=== PATIENT | male | born 1955 ===

== ENCOUNTER 2017-01-23 00:56 | Emergency (ER) | payer MEDICAID ==
[2017-01-23 01:43] VITALS: BP 153/94; PULSE 71; RESP 16; TEMP 98.1; O2SAT 99
--- NOTE | 2017-01-23 03:02 | ED PDOC ---
Lower Extremity Pain/Injury Time Seen by Provider: 01/23/17 02:19 Chief Complaint (Nursing): Lower Extremity Problem/Injury Chief Complaint (Provider): Left hip, low back pain radiating to the lower leg History Per: Patient History/Exam Limitations: no limitations Onset/Duration Of Symptoms: Days Additional Complaint(s): No injury. No medications at home for pain. Past Medical History Reviewed: Historical Data, Nursing Documentation, Vital Signs Vital Signs: Last Vital Signs Temp 98.1 F 01/23/17 01:40 Pulse 71 01/23/17 01:40 Resp 16 01/23/17 01:40 BP 153/94 H 01/23/17 01:40 Pulse Ox 99 01/23/17 01:40 - Medical History PMH: CAD, CHF, HTN, Hypercholesterolemia Denies: Chronic Kidney Disease - Family History Family History: States: No Known Family Hx - Living Arrangements Living Arrangements: With Family - Social History Current smoker - smoking cessation education provided: No Alcohol: None Drugs: Denies - Home Medications Home Medications: Ambulatory Orders Medication Instructions Recorded Furosemide [Lasix] 40 mg PO DAILY #0 tab 07/03/14 Metoprolol Tartrate [Lopressor] 25 mg PO BID #0 tab 07/03/14 Lisinopril [Zestril] 5 mg PO DAILY 11/28/16 Simvastatin 5 mg PO DAILY 11/28/16 Warfarin [Coumadin] 3 mg PO MWF 11/28/16 Warfarin [Coumadin] 4 mg PO TTS 11/28/16 Cyclobenzaprine [Cyclobenzaprine 10 mg PO Q8H PRN #12 tab 01/23/17 HCl] predniSONE [predniSONE Tab] 20 mg PO DAILY #12 tab 01/23/17 - Allergies Allergies/Adverse Reactions: Allergies Allergy/AdvReac Type Severity Reaction Status Date / Time No Known Allergies Allergy Verified 07/24/14 14:11 Review of Systems ROS Statement: Except As Marked, All Systems Reviewed And Found Negative Musculoskeletal: Positive for: Other Physical Exam - Reviewed Nursing Documentation Reviewed: Yes Vital Signs Reviewed: Yes - Physical Exam Appears: Positive for: Well, Non-toxic, No Acute Distress Head Exam: Positive for: ATRAUMATIC, NORMAL INSPECTION, NORMOCEPHALIC Skin: Positive for: Normal Color, Warm, DRY Eye Exam: Positive for: Normal appearance ENT: Positive for: Normal ENT Inspection Neck: Positive for: Normal, Painless ROM Cardiovascular/Chest: Negative for: Chest Non Tender Respiratory: Negative for: Accessory Muscle Use Back: Positive for: Normal Inspection Extremity: Positive for: Normal ROM, Other ((+) pain left leg raise, (+) pain with knee in flexion and hip hyperadduction) Neurologic/Psych: Positive for: Alert, Oriented - ECG O2 Sat by Pulse Oximetry: 99 Medical Decision Making Medical Decision Making: Tylenol PO Flexeril PO IM solumedrol 0350 - Pt reports feeling better. Disposition - Clinical Impression Clinical Impression: Sciatica - Patient ED Disposition Is Patient to be Admitted: No Counseled Patient/Family Regarding: Diagnosis, Need For Followup, Rx Given - Disposition Disposition: Routine/Home Disposition Time: 03:51 Condition: GOOD Prescriptions: Cyclobenzaprine [Cyclobenzaprine HCl] 10 mg PO Q8H PRN #12 tab PRN Reason: Muscle Spasm predniSONE [predniSONE Tab] 20 mg PO DAILY #12 tab Instructions: Sciatica (ED) Print Language: POLISH
== END 2017-01-23 04:02 | disposition home or self-care (01) ==
LOC: H.ER 00:56
DX: M54.30 Sciatica, unspecified side (principal); E78.00 Pure hypercholesterolemia, unspecified; I10 Essential (primary) hypertension; I25.10 Atherosclerotic heart disease of native coronary artery without angina pectoris; Z79.01 Long term (current) use of anticoagulants

== ENCOUNTER 2018-02-25 01:13 | Inpatient (IN) | payer MEDICAID ==
[2018-02-25 01:13] VITALS: BMI 29.2
[2018-02-25] MEDS ORDERED: Nitroglycerin 2% Ointment Foilpak UD TOP STA (01:34)
[2018-02-25] MEDS ORDERED: Albuterol-Ipratrop 3 mg / 0.5 (3 ml) UD INH STA (01:34)
[2018-02-25] MEDS ORDERED: Nitroglycerin 2% Ointment Foilpak UD TOP ONE ×2 (01:41→05:43)
[2018-02-25] MEDS ORDERED: Albuterol-Ipratrop 3 mg / 0.5 (3 ml) UD ONE (01:41)
--- NOTE | 2018-02-25 02:09 | ED PDOC ---
HPI: SOB/CHF/COPD Time Seen by Provider: 02/25/18 01:28 Chief Complaint (Nursing): Shortness Of Breath Chief Complaint (Provider): Shortness Of Breath History Per: Patient History/Exam Limitations: no limitations Onset/Duration Of Symptoms: Hrs (x12) Current Symptoms Are (Timing): Still Present Additional Complaint(s): 62 y/o male with a pmhx of HTN, dyslipidemia, CAD, CHF, and gout here for evaluation of worsening SOB x12 hours. Patient describes PND orthopnea. Patient reports requiring 2-3 pillows to lay down. Denies lower extremity swelling. PMD: Dr. Shipley Past Medical History Reviewed: Historical Data, Nursing Documentation, Vital Signs Vital Signs: Last Vital Signs Temp 99 F 02/25/18 01:28 Pulse 91 H 02/25/18 01:28 Resp 20 02/25/18 01:28 BP 165/105 H 02/25/18 01:45 Pulse Ox 99 02/25/18 02:20 - Medical History PMH: CAD, CHF, HTN, Hypercholesterolemia Denies: Chronic Kidney Disease Other PMH: Gout - Surgical History Surgical History: No Surg Hx - Family History Family History: States: Unknown Family Hx - Social History Current smoker - smoking cessation education provided: No Alcohol: None Drugs: Denies - Allergies Allergies/Adverse Reactions: Allergies Allergy/AdvReac Type Severity Reaction Status Date / Time No Known Allergies Allergy Verified 02/25/18 01:28 Review of Systems ROS Statement: Except As Marked, All Systems Reviewed And Found Negative Respiratory: Positive for: Shortness of Breath Physical Exam - Reviewed Nursing Documentation Reviewed: Yes Vital Signs Reviewed: Yes - Physical Exam Appears: Positive for: Non-toxic, In Acute Distress (moderate respiratory distress) Head Exam: Positive for: ATRAUMATIC, NORMAL INSPECTION, NORMOCEPHALIC Skin: Positive for: Normal Color, Warm, Dry. Negative for: Rash Eye Exam: Positive for: EOMI, Normal appearance, PERRL Neck: Positive for: Normal, Painless ROM, Supple Cardiovascular/Chest: Positive for: Regular Rate, Rhythm, JVD (2+). Negative for: Murmur Respiratory: Positive for: Rales (bibasilar), Respiratory Distress (moderate) Gastrointestinal/Abdominal: Positive for: Normal Exam, Soft. Negative for: Tenderness Back: Positive for: Normal Inspection. Negative for: L CVA Tenderness, R CVA Tenderness, Vertebral Tenderness Extremity: Positive for: Normal ROM. Negative for: Pedal Edema, Deformity, Swelling Neurologic/Psych: Positive for: Alert, Oriented - ECG O2 Sat by Pulse Oximetry: 99 (RA) Pulse Ox Interpretation: Normal - Critical Care Total Time (In Min): 30 Medical Decision Making Medical Decision Makin:33 Initial Impression: 62 y/o male with acute exacerbation of CHF in setting of respiratory distress Plan --EKG --BNP --Troponin I --CBC --PTT/PT --CXR --Duoneb 3ml INH --Lasix 40mg IV --Nitro paste --Heplock insertion --Reevaluation CXR shows cardiomegaly and pulmonary edema. Patient accepted into the care of Dr. Saez. Scribe Attestation: Documented by Deven Ramirez, acting as a scribe for John Holm MD. Provider Scribe Attestation: All medical record entries made by the Scribe were at my direction and personally dictated by me. I have reviewed the chart and agree that the record accurately reflects my personal performance of the history, physical exam, medical decision making, and the department course for this patient. I have also personally directed, reviewed, and agree with the discharge instructions and disposition. Disposition - Clinical Impression Clinical Impression: CHF (congestive heart failure), Respiratory distress - Patient ED Disposition Is Patient to be Admitted: Yes - Disposition Disposition Time: 01:45 Condition: GUARDED Forms: [facility] (Spanish) - Pt Status Changed To: Hospital Disposition Of: Inpatient - Admit Certification Admit to Inpatient:: After my assessment, the patient will require hospitalization for at least two midnights. This is because of the severity of symptoms shown, intensity of services needed, and/or the medical risk in this patient being treated as an outpatient.
[2018-02-25 02:16] LABS: BASO # 0.1 K/uL (0.0-0.2); BASO % 0.9 % (0.0-2.0); EOS # 0.1 K/uL (0.0-0.7); EOS % 1.1 % (0.0-4.0); HEMOGLOBIN 13.3 g/dL (12.0-18.0); LYMPH # 2.2 K/uL (1.0-4.3); LYMPH % 21.7 % (20.0-40.0); MEAN CORPUSCULAR HEMOGLOBIN 29.1 pg (27.0-31.0); MEAN PLATELET VOLUME 8.9 fl (7.2-11.7); MONO # 0.6 K/uL (0.0-0.8); MONO % 6.4 % (0.0-10.0); NEUT # 7.1 K/uL (1.8-7.0); NEUT % 69.9 % (50.0-75.0); RBC 4.56 Mil/uL (4.40-5.90); RED CELL DISTRIBUTION WIDTH 14.7 % (11.5-14.5); WHITE BLOOD COUNT 10.1 K/uL (4.8-10.8)
--- NOTE | 2018-02-25 04:09 | CP.PCM.HP ---
History of Present Illness - History of Present Illness History of Present Illness: PMD: Allison Shipley MD Support Services Rep: Dr Levine Chief Complaint: SOB The patient was seen and examined in the ED with his present HPI: The hx was obtained from Patient and and after review of the medical records. He is a 62 years old male with hx of CHF, CAD, HTN and HLD. He comes with 3 days of worsening of SOB with minimum exertion associated with coughing, Orthopnea and diaphoresis. No chest pain, palpitation, fever nor leg edema. PMH: CAD, CHF Systolic Dysfunction, HTN, HLD; Gout; GI bleed PSH: Denies SH: Occasional Alcohol; Former Smoker; No illegal drug use; Live with ; vending route driver by trade Allergies: NKDA Medication: Reviewed Present on Admission - Present on Admission Any Indicators Present on Admission: No History of DVT/PE: No History of Uncontrolled Diabetes: No Urinary Catheter: No Decubitus Ulcer Present: No Review of Systems - Constitutional Constitutional: absent: Anorexia, Chills, Fever, Headache - EENT Eyes: Requires Corrective Lenses. absent: Floaters, Itchy Eyes, Sees Flashes Ears: absent: Decreased Hearing, Ear Discharge, Ear Pain Nose/Mouth/Throat: absent: Epistaxis, Nasal Congestion, Sinus Pain, Sinus Pressure Additional comments: Upper and lower dentures - Cardiovascular Cardiovascular: Dyspnea, Orthopnea. absent: Chest Pain, Edema, Pedal Edema - Respiratory Respiratory: Cough, Dyspnea on Exertion, Wheezing, Chest Congestion. absent: Dyspnea, Stridor - Gastrointestinal Gastrointestinal: absent: Abdominal Pain, Constipation, Diarrhea, Nausea, Vomiting - Genitourinary Genitourinary: absent: Dysuria, Flank Pain, Hematuria - Musculoskeletal Musculoskeletal: Arthralgias. absent: Back Pain, Myalgias - Integumentary Integumentary: absent: Pruritus, Rash, Skin Ulcer, Sores, Striae, Swelling - Neurological Neurological: absent: Confusion, Dizziness, Focal Weakness, Headaches, Weakness - Psychiatric Psychiatric: absent: Anxiety, Depression, Panic Attacks - Endocrine Endocrine: absent: Palpitations, Polydipsia, Polyphagia, Polyuria - Hematologic/Lymphatic Hematologic: absent: Easy Bleeding, Easy Bruising Past Patient History - Infectious Disease Hx of Infectious Diseases: None - Past Medical History & Family History Past Medical History?: No - Past Social History Smoking Status: Former Smoker Chewing Tobacco Use: No Cigar Use: No Alcohol: Occasional Drugs: Denies Home Situation {Lives}: With Family - CARDIAC Hx Congestive Heart Failure: Yes Hx Hypercholesterolemia: Yes Hx Hypertension: Yes - PULMONARY Hx Respiratory Disorders: No - NEUROLOGICAL Hx Neurological Disorder: No - HEENT Hx HEENT Problems: No - RENAL Hx Chronic Kidney Disease: No - ENDOCRINE/METABOLIC Hx Endocrine Disorders: No - HEMATOLOGICAL/ONCOLOGICAL Hx Blood Disorders: No - INTEGUMENTARY Hx Dermatological Problems: No - MUSCULOSKELETAL/RHEUMATOLOGICAL Hx Musculoskeletal Disorders: No Hx Falls: No - GASTROINTESTINAL Hx Gastrointestinal Disorders: No - GENITOURINARY/GYNECOLOGICAL Hx Genitourinary Disorders: No - PSYCHIATRIC Hx Psychophysiologic Disorder: No Hx Substance Use: No - SURGICAL HISTORY Hx Surgeries: No - ANESTHESIA Hx Anesthesia: Yes Hx Anesthesia Reactions: No Meds Allergies/Adverse Reactions: Allergies Allergy/AdvReac Type Severity Reaction Status Date / Time No Known Allergies Allergy Verified 02/25/18 01:28 Physical Exam - Constitutional Appears: In Acute Distress - Head Exam Head Exam: ATRAUMATIC, NORMAL INSPECTION, NORMOCEPHALIC - Eye Exam Eye Exam: EOMI, Normal appearance Pupil Exam: NORMAL ACCOMODATION, PERRL - ENT Exam ENT Exam: Mucous Membranes Moist, Normal Exam, Normal External Ear Exam - Neck Exam Neck exam: Positive for: Full Rom, Normal Inspection. Negative for: Lymphadenopathy, Tenderness - Respiratory Exam Respiratory Exam: Prolonged Expiratory Phase, Rales, Wheezes. absent: Rhonchi - Cardiovascular Exam Cardiovascular Exam: REGULAR RHYTHM, RRR, +S1, +S2. absent: Gallop - GI/Abdominal Exam GI & Abdominal Exam: Normal Bowel Sounds, Soft. absent: Mass, Organomegaly, Tenderness - Rectal Exam Rectal Exam: Deferred - Extremities Exam Extremities exam: Positive for: full ROM, normal inspection. Negative for: calf tenderness, pedal edema - Back Exam Back exam: NORMAL INSPECTION. absent: CVA tenderness (L), CVA tenderness (R) - Neurological Exam Neurological exam: Alert, CN II-XII Intact, Oriented x3, Reflexes Normal - Psychiatric Exam Psychiatric exam: Normal Affect, Normal Mood - Skin Skin Exam: Dry, Intact, Normal Color, Warm Results - Vital Signs Recent Vital Signs: Last Vital Signs Temp 99 F 02/25/18 01:28 Pulse 76 02/25/18 02:53 Resp 22 02/25/18 04:00 BP 153/98 H 02/25/18 02:53 Pulse Ox 91 L 02/25/18 04:00 - Labs Result Diagrams: 02/25/18 01:38 02/25/18 05:10 - EKG Data EKG comments: NSR 97/min LAE and LVH Prolonged QT - Imaging and Cardiology Chest x-ray Status: Image reviewed by me Additional comment: Bilateral interstitial/Alveolar infiltrate at both hilar and lower lung otto Cardiomegaly Assessment & Plan - Assessment and Plan (Free Text) Assessment: #. Acute on chronic CHF with Systolic Dysfunction #. pulmonary Edema #. HTN #. CAD Plan: 62 years old male with hx of CHF, CAD, HTN and HLD. He comes with 3 days of worsening of SOB with minimum exertion associated with coughing, Orthopnea and diaphoresis. No chest pain, palpitation, fever nor leg edema. #. Acute on chronic CHF with Systolic Dysfunction and Pulmonary Edema Hx stated that patient refused ICD on past admissions( ECHO 01/30/17 showed Systolic Dysfunction with LVEF of 35%) - Consult Dr Warner Cardiology - ECHO - Lasix 40mg IV BID - Lisinopril - Nitro Q6H To Anterior Chest wall - Restart Metoprolol when SOB has improved #. HTN - Lisinopril - Metoprolol - Follow Blood Pressures #. CAD - Lipitor - ASA #. Stress Ulcer prophylaxis with Pepcid #. DVT Prophylaxis with SCD and Lovenox #. Code Status: Full - Date & Time Date: 02/25/18 Time: 04:09
[2018-02-25 04:17] LABS: PROTHROMBIN TIME 10.9 Seconds (9.8-13.1)
[2018-02-25 04:18] LABS: PARTIAL THROMBOPLASTIN TIME 26.6 Seconds (25.6-37.1)
[2018-02-25 05:10] LABS: TROPONIN I 0.016 ng/mL (0.00-0.120)
[2018-02-25 05:22] LABS: ALBUMIN 4.3 g/dL (3.5-5.0); ALT/SGPT 30 U/L (21-72); AST/SGOT 62 U/L (17-59); BLOOD UREA NITROGEN 19 mg/dl (9-20); CALCIUM 9.5 mg/dL (8.4-10.2); GFR AFRICAN-AMERICAN > 60; GFR NON-AFRICAN AMERICAN > 60
[2018-02-25 05:37] LABS: ABG ALLEN TEST YES; ARTERIAL BLOOD GAS HCO3 28.1 mmol/L (21-28); ARTERIAL BLOOD GAS HEMOGLOBIN 12.8 g/dL (11.7-17.4); ARTERIAL BLOOD GAS O2 CAPACITY 17.2 mL/dL (16-24); ARTERIAL BLOOD GAS O2 SAT 98.6 % (95-98); ARTERIAL BLOOD GAS PCO2 40 mm/Hg (35-45); ARTERIAL BLOOD GAS PH 7.46 (7.35-7.45); ARTERIAL BLOOD GAS PO2 83 mm/Hg (80-100); ARTERIAL BLOOD GAS TCO2 29.6 mmol/L (22-28)
[2018-02-25] MEDS: Nitroglycerin 2% Ointment Foilpak UD TOP SCH ×3 (05:41→17:25)
[2018-02-25] MEDS: Albuterol 0.083% Inhal Sol (2.5 mg/3 mL) UD INH SCH ×2 (07:22→13:25)
--- NOTE | 2018-02-25 07:39 | RAD ---
HISTORY: SOB COMPARISON: Portable chest 06/27/2014. FINDINGS: LUNGS: Underlying perihilar airspace disease difficult to exclude. PLEURA: No significant pleural effusion identified, no pneumothorax apparent. CARDIOVASCULAR: Prominent cardiac silhouette and hilar vascular markings persist if not being increased reflecting borderline worsening of CHF. OSSEOUS STRUCTURES: No significant abnormalities. VISUALIZED UPPER ABDOMEN: Normal. OTHER FINDINGS: None. IMPRESSION: Borderline CHF worsening. Underlying perihilar infiltrates difficult to exclude. No pleural effusion or pneumothorax bilaterally.
--- NOTE | 2018-02-25 07:53 | CARD ---
APPROVED REPORT EKG Measurement Heart [id number] <Conclusion> Normal sinus rhythm Possible Left atrial enlargement Left ventricular hypertrophy with repolarization abnormality Prolonged QT Abnormal ECG
[2018-02-25] MEDS ORDERED: Pyridoxine 100 mg Tab PO SCH (09:00)
[2018-02-25] MEDS ORDERED: Enoxaparin 40 mg Syringe SC SCH (09:00)
[2018-02-25 14:03] VITALS: O2SAT 98
[2018-02-25 15:39] VITALS: BP 129/77; PULSE 75; RESP 17; TEMP 98.2
[2018-02-25 17:04] LABS: TROPONIN I 0.017 ng/mL (0.00-0.120)
--- NOTE | 2018-02-25 18:21 | CP.PCM.DIS ---
Provider - Provider Date of Admission: 02/25/18 06:14 Attending physician: Yusef Saez Primary care physician: Dr. Allison Nelson( [facility] ) Consults: cardiology consult Time Spent in preparation of Discharge (in minutes): 15 Hospital Course - Lab Results Lab Results: Most Recent Lab Values WBC 10.1 K/uL (4.8-10.8) D 02/25/18 01:38 RBC 4.56 Mil/uL (4.40-5.90) 02/25/18 01:38 Hgb 13.3 g/dL (12.0-18.0) 02/25/18 01:38 Hct 40.2 % (35.0-51.0) 02/25/18 01:38 MCV 88.0 fl (80.0-94.0) 02/25/18 01:38 MCH 29.1 pg (27.0-31.0) 02/25/18 01:38 MCHC 33.0 g/dL (33.0-37.0) 02/25/18 01:38 RDW 14.7 % (11.5-14.5) H 02/25/18 01:38 Plt Count 261 K/uL (130-400) 02/25/18 01:38 MPV 8.9 fl (7.2-11.7) 02/25/18 01:38 Neut % (Auto) 69.9 % (50.0-75.0) 02/25/18 01:38 Lymph % (Auto) 21.7 % (20.0-40.0) 02/25/18 01:38 Roane % (Auto) 6.4 % (0.0-10.0) 02/25/18 01:38 Eos % (Auto) 1.1 % (0.0-4.0) 02/25/18 01:38 Baso % (Auto) 0.9 % (0.0-2.0) 02/25/18 01:38 Neut # (Auto) 7.1 K/uL (1.8-7.0) H 02/25/18 01:38 Lymph # (Auto) 2.2 K/uL (1.0-4.3) 02/25/18 01:38 Roane # (Auto) 0.6 K/uL (0.0-0.8) 02/25/18 01:38 Eos # (Auto) 0.1 K/uL (0.0-0.7) 02/25/18 01:38 Baso # (Auto) 0.1 K/uL (0.0-0.2) 02/25/18 01:38 PT 10.9 Seconds (9.8-13.1) 02/25/18 03:30 INR 1.0 (0.9-1.2) 02/25/18 03:30 APTT 26.6 Seconds (25.6-37.1) 02/25/18 03:30 pCO2 40 mm/Hg (35-45) 02/25/18 05:30 pO2 83 mm/Hg (80-100) 02/25/18 05:30 HCO3 28.1 mmol/L (21-28) H 02/25/18 05:30 ABG pH 7.46 (7.35-7.45) H 02/25/18 05:30 ABG Total CO2 29.6 mmol/L (22-28) H 02/25/18 05:30 ABG O2 Saturation 98.6 % (95-98) H 02/25/18 05:30 ABG O2 Content 17.0 ML/dL (15-23) 02/25/18 05:30 ABG Base Excess 4.2 mmol/L (-2.0-3.0) H 02/25/18 05:30 ABG Hemoglobin 12.8 g/dL (11.7-17.4) 02/25/18 05:30 ABG Carboxyhemoglobin 2.3 % (0.5-1.5) H 02/25/18 05:30 POC ABG HHb (Measured) 1.3 % (0.0-5.0) 02/25/18 05:30 ABG Methemoglobin 2.2 % (0.0-3.0) 02/25/18 05:30 ABG O2 Capacity 17.2 mL/dL (16-24) 02/25/18 05:30 Devin Test Yes 02/25/18 05:30 A-a O2 Difference 67.0 mm/Hg 02/25/18 05:30 Hgb O2 Saturation 94.1 % (95.0-98.0) L 02/25/18 05:30 FiO2 28.0 % 02/25/18 05:30 Sodium 143 mmol/l (132-148) 02/25/18 05:10 Potassium 3.9 MMOL/L (3.6-5.0) 02/25/18 05:10 Chloride 104 mmol/L (98-107) 02/25/18 05:10 Carbon Dioxide 22 mmol/L (22-30) 02/25/18 05:10 Anion Gap 21 (10-20) H 02/25/18 05:10 BUN 19 mg/dl (9-20) 02/25/18 05:10 Creatinine 1.2 mg/dl (0.8-1.5) 02/25/18 05:10 Est GFR ( Amer) > 60 02/25/18 05:10 Est GFR (Non-Af Amer) > 60 02/25/18 05:10 Random Glucose 121 mg/dL (75-110) H 02/25/18 05:10 Calcium 9.5 mg/dL (8.4-10.2) 02/25/18 05:10 Total Bilirubin 0.9 mg/dl (0.2-1.3) 02/25/18 05:10 AST 62 U/L (17-59) H D 02/25/18 05:10 ALT 30 U/L (21-72) 02/25/18 05:10 Alkaline Phosphatase 103 U/L (38-126) 02/25/18 05:10 Troponin I 0.0170 ng/mL (0.00-0.120) 02/25/18 15:27 NT-Pro-B Natriuret Pep 1280 pg/ml (0-900) H 02/25/18 01:38 Total Protein 8.6 G/DL (6.3-8.2) H 02/25/18 05:10 Albumin 4.3 g/dL (3.5-5.0) 02/25/18 05:10 Globulin 4.3 gm/dL (2.2-3.9) H 02/25/18 05:10 Albumin/Globulin Ratio 1.0 (1.0-2.1) 02/25/18 05:10 - Hospital Course Hospital Course: 62 years old male with hx of CHF, CAD, HTN and HLD. came with 3 days of worsening of SOB with minimum exertion associated with coughing, Orthopnea and diaphoresis. No chest pain, palpitation, fever nor leg edema.BNp found to be elevated 1280 and CXR showed vascular congestion Patient placed under observation in telemetry for acute on chronic CHF exacerbation and Troponins were cycled Q8 hours and started on LasiX IV cardiology was consulted Troponins x3 were negative ruling out cardiac ischemia Echo showed systolic dysfunction Patient feeling well and denies any SOB or CP wants to go home will discharge patient home,. Counselled on low salt diet . Increase Lasix from 20 mg to 40 mg daily Follow up with [facility] in 1 week 1. Acute on chronic CHF with Systolic Dysfunction and Pulmonary Edema improved with lasix will d/c on Lasix 40 mg po daily counselled on low salt diet patient refused ICD on past admissions( ECHO 01/30/17 showed Systolic Dysfunction with LVEF of 35%) Consult with Dr Warner Cardiology appreciated continue Lasix , metoprolol, Lisinopril 2. HTN on Lisinopri, Metoprolol 3. CAD - Lipitor, asa, statin, BB Discharge Exam - Head Exam Head Exam: ATRAUMATIC, NORMAL INSPECTION, NORMOCEPHALIC - Eye Exam Eye Exam: EOMI, Normal appearance, PERRL Pupil Exam: NORMAL ACCOMODATION - ENT Exam ENT Exam: Mucous Membranes Moist, Normal Exam - Neck Exam Neck exam: Full Rom, Normal Inspection - Respiratory Exam Respiratory Exam: Clear to PA & Lateral, NORMAL BREATHING PATTERN. absent: Rhonchi, Wheezes, Respiratory Distress - Cardiovascular Exam Cardiovascular Exam: REGULAR RHYTHM, RRR, +S1, +S2. absent: JVD - GI/Abdominal Exam GI & Abdominal Exam: Normal Bowel Sounds, Soft. absent: Distended, Guarding, Rebound, Tenderness - Rectal Exam Rectal Exam: Deferred - Extremities Exam Extremities exam: normal capillary refill, normal inspection, pedal pulses present - Back Exam Back exam: NORMAL INSPECTION - Neurological Exam Neurological exam: Alert, CN II-XII Intact, Oriented x3, Reflexes Normal - Psychiatric Exam Psychiatric exam: Normal Affect, Normal Mood - Skin Skin Exam: Dry, Intact, Normal Color, Warm Discharge Plan - Follow Up Plan Condition: STABLE Disposition: HOME/ ROUTINE Patient education suggested?: Yes Instructions: Heart Failure, Adult (DC) Referrals: [facility] [Outside] Clinical Quality Measures - CQM - Heart Failure Ejection Fraction: Less Than 40 % Left Ventricular Function to be assessed after discharge: No BONNIE Inhibitor Prescribed: Yes Beta-Willie Prescribed: Metoprolol Succinate Follow Up Date (must be within 7 days from discharge): 03/04/18 Follow Up Time: 09:00
--- NOTE | 2018-02-25 22:43 | CON ---
CARDIOLOGY CONSULTATION DATE: REASON FOR CONSULTATION: Exacerbation of congestive heart failure. 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 For the past few months, the patient has not taken any medication and not seeing any physician and according to him, he continues to drink. The patient was referred to the CHF program at [facility], but apparently he did not to go there. He presents because of shortness of breath. He denies any substernal chest pain. SOCIAL HISTORY: The patient is a nonsmoker, but EtOH abuser. MEDICATIONS: Albuterol inhaler every 6 hours p.r.n., aspirin 81 mg once a day, Lasix 40 mg intravenously twice a day, Lipitor 10 mg once a day, Lovenox 40 mg subcutaneously once a day, Zestril 5 mg once a day, vitamin B 600 mg once a day, and Pepcid 20 mg orally once a day. REVIEW OF SYSTEMS: No nausea or vomiting. No fever or chills. PHYSICAL EXAMINATION: GENERAL: The patient is a middle-aged male who does not appear to be in acute distress. VITAL SIGNS: Blood pressure 129/77, heart rate 75, temperature 98.2, and respirations 17. HEENT: Normocephalic. NECK: Jugular venous distention noted. CHEST: Bibasilar coarse crepitations. HEART: S1 and S2 regular. ABDOMEN: Soft. EXTREMITIES: Trace leg edema. LABORATORY DATA: Today's hemoglobin and hematocrit, white count, and platelet count are within normal limits. PT, INR, and PTT are within normal limits. SMA-7 is within normal limits except for glucose 121 and anion gap of 21. Two sets of troponins are negative. ProBNP is 1280. EKG revealed sinus rhythm, possible left atrial enlargement, LVH with repolarization changes, and prolonged QT interval. Echocardiographic study was performed today and upon brief review of the study which revealed dilated with severely depressed left ventricle systolic function with dilated left atrium. ASSESSMENT: 1. Exacerbation of congestive heart failure. 2. Ethanol abuse. 3. Prolonged QT interval on electrocardiogram. RECOMMENDATIONS: Continue current aspirin 81 mg once a day, Lasix 40 mg intravenously twice a day, Lipitor 10 mg once a day, Lovenox 40 mg subcutaneously twice a day, Zestril 5 mg once a day, start Coreg 3.125 mg twice a day, Aldactone 12.5 mg once a day, full anticoagulation as well as referral for EPS evaluation for possible ICD would be discussed with the primary physician first because with the patient's very poor compliance and continued EtOH abuse. Chai Warner MD
--- NOTE | 2018-02-26 08:12 | CARD ---
APPROVED REPORT EXAM: Two-dimensional and M-mode echocardiogram with Doppler and color Doppler. Other Information Quality : GoodRhythm : NSR INDICATION Congestive Heart Failure 2D DIMENSIONS IVSd0.76 (0.7-1.1cm)LVDd6.70 (3.9-5.9cm) LVOT Diameter1.99 (1.8-2.4cm)PWd1.21 (0.7-1.1cm) IVSs0.94 (0.8-1.2cm)LVDs5.63 (2.5-4.0cm) FS (%) 16.0 %PWs1.63 (0.8-1.2cm) M-Mode DIMENSIONS Left Atrium (MM)5.34 (2.5-4.0cm)IVSd0.75 (0.7-1.1cm) Aortic Root3.47 (2.2-3.7cm)LVDd7.28 (4.0-5.6cm) Aortic Cusp Exc.2.09 (1.5-2.0cm)PWd0.91 (0.7-1.1cm) IVSs1.19 cmFS (%) 21 % LVDs5.72 (2.0-3.8cm)PWs1.28 cm Mitral Valve MV E Ydphfikt16.7cm/sMV DECEL [id number] A Lqjikgwk80.3cm/s MV RNO33teH/A ratio1.7MVA (PHT)4.52cm2 TDI Lateral E' Peak V11.49cm/sMedial E' Peak V4.40cm/sE/Lateral E'6.6 E/Medial E'17.2 Pulmonary Valve PV Peak Gpaijxns88.9cm/s LEFT VENTRICLE The Left Ventricle is moderately dilated. There is normal left ventricular wall thickness. Left ventricle systolic function is severely impaired. The Ejection Fraction is 10-15%. There was severe generalised hypokinesia Transmitral Doppler flow pattern is Grade II-pseudonormal filling dynamics. RIGHT VENTRICLE The right ventricle is normal size. There is normal right ventricular wall thickness. The right ventricular systolic function is normal. ATRIA The left atrium is mildly dilated. The right atrium size is normal. AORTIC VALVE The aortic valve is normal in structure. No aortic regurgitation is present. There is no aortic valvular stenosis. MITRAL VALVE The mitral valve is normal in structure. There is no evidence of mitral valve prolapse. There is no mitral valve stenosis. Mitral regurgitation is mild. TRICUSPID VALVE The tricuspid valve is normal in structure. There is no tricuspid valve regurgitation noted. PULMONIC VALVE The pulmonary valve is normal in structure. There is no pulmonic valvular regurgitation. GREAT VESSELS The aortic root is normal in size. The IVC is normal in size and collapses >50% with inspiration. PERICARDIAL EFFUSION The pericardium appears normal. <Conclusion> The Left Ventricle is moderately dilated. There is normal left ventricular wall thickness. There was severe generalised hypokinesia Left ventricle systolic function is severely impaired. The Ejection Fraction is 10-15%. Transmitral Doppler flow pattern is Grade II-pseudonormal filling dynamics.
== END 2018-02-25 18:55 | disposition home or self-care (01) | DRG 127 ==
LOC: H.ER 01:13 → H.ERHOLD 01:45 → H.TEL 06:09 → OBSVTOIN 06:14
PROVIDERS: ADMIT Internal Medicine; ATTEND Internal Medicine
DX: I11.0 Hypertensive heart disease with heart failure (principal); I42.6 Alcoholic cardiomyopathy; I50.23 Acute on chronic systolic (congestive) heart failure; E78.00 Pure hypercholesterolemia, unspecified; E78.5 Hyperlipidemia, unspecified; Z87.891 Personal history of nicotine dependence; I25.10 Atherosclerotic heart disease of native coronary artery without angina pectoris; I45.81 Long QT syndrome; F10.10 Alcohol abuse, uncomplicated; Z71.3 Dietary counseling and surveillance; M10.9 Gout, unspecified; Z98.61 Coronary angioplasty status

== ENCOUNTER 2018-09-08 08:06 | Inpatient (IN) | payer MEDICAID ==
[2018-09-08 08:07] VITALS: BMI 29.2
[2018-09-08] MEDS ORDERED: Albuterol-Ipratrop 3 mg / 0.5 (3 ml) UD IH STA ×2 (08:37→08:38)
[2018-09-08] MEDS ORDERED: Albuterol-Ipratrop 3 mg / 0.5 (3 ml) UD INH STA (08:37)
[2018-09-08] MEDS ORDERED: Albuterol-Ipratrop 3 mg / 0.5 (3 ml) UD ONE (08:44)
[2018-09-08 08:46] LABS: VENOUS BLOOD GAS BASE EXCESS 1.7 mmol/L (0.0-2.0); VENOUS BLOOD GAS PCO2 38 mmHg (40-60); VENOUS BLOOD GAS PO2 49 mm/Hg (30-55); VENOUS BLOOD PH 7.44 (7.32-7.43)
[2018-09-08 08:53] LABS: PROTHROMBIN TIME 11.2 Seconds (9.8-13.1)
[2018-09-08 08:56] LABS: PARTIAL THROMBOPLASTIN TIME 27.6 Seconds (25.6-37.1)
[2018-09-08 09:01] LABS: BASO # 0.1 K/uL (0.0-0.2); BASO % 0.8 % (0.0-2.0); EOS % 0.6 % (0.0-4.0); HEMOGLOBIN 13.2 g/dL (12.0-18.0); LYMPH # 1.8 K/uL (1.0-4.3); LYMPH % 25.4 % (20.0-40.0); MEAN CELL VOLUME 89.2 fl (80.0-94.0); MEAN CORPUSCULAR HEMOGLOBIN 29.5 pg (27.0-31.0); MEAN CORPUSCULAR HGB CONC 33.1 g/dL (33.0-37.0); MEAN PLATELET VOLUME 9.1 fl (7.2-11.7); MONO # 0.5 K/uL (0.0-0.8); MONO % 7.6 % (0.0-10.0); NEUT # 4.7 K/uL (1.8-7.0); NEUT % 65.6 % (50.0-75.0); NRBC % 0.1 % (0.0-0.0); RBC 4.47 Mil/uL (4.40-5.90); RED CELL DISTRIBUTION WIDTH 14.9 % (11.5-14.5); WHITE BLOOD COUNT 7.1 K/uL (4.8-10.8)
[2018-09-08 09:03] LABS: BLOOD UREA NITROGEN 17 mg/dl (9-20); GFR NON-AFRICAN AMERICAN > 60
[2018-09-08 09:06] LABS: ALB/GLOB RATIO 0.9 (1.0-2.1); ALBUMIN 4.3 g/dL (3.5-5.0); ALT/SGPT 21 U/L (21-72); AST/SGOT 63 U/L (17-59)
[2018-09-08 09:14] LABS: B-TYPE NATRIURETIC PEPTIDE 1260 pg/ml (0-900)
--- NOTE | 2018-09-08 10:44 | ED PDOC ---
HPI: CCC, URI, Sore Throat Time Seen by Provider: 09/08/18 08:13 Chief Complaint (Nursing): Cough, Cold, Congestion Chief Complaint (Provider): Cough, Cold, Congestion History Per: Patient History/Exam Limitations: no limitations Onset/Duration Of Symptoms: Days (x3) Current Symptoms Are (Timing): Still Present Location Of Pain: None Sick Contacts (Context): None Associated Symptoms: Cough, Nasal Congestion Additional Complaint(s): 62 y/o male with a PMHx of CHF and HTN presents to the ED for evaluation of cough, cold and congestion, onset 3 days ago. Patient states cough is productive with white phlegm and is associated with shortness of breath. Patient reports of taking cough medicine with no relief. Otherwise, patient denies nausea, vomiting, diarrhea, chest pain and leg pain. PMD: Allison Peters Past Medical History Reviewed: Historical Data, Nursing Documentation, Vital Signs Vital Signs: Last Vital Signs Temp 97.4 F L 09/08/18 08:36 Pulse 74 09/08/18 10:02 Resp 20 09/08/18 10:02 BP 159/110 H 09/08/18 10:02 Pulse Ox 94 L 09/08/18 09:06 - Medical History PMH: CAD, CHF, HTN, Hypercholesterolemia Denies: Chronic Kidney Disease - Surgical History Surgical History: No Surg Hx - Family History Family History: States: Unknown Family Hx - Home Medications Home Medications: Ambulatory Orders Medication Instructions Recorded RX: Furosemide [Lasix] 40 mg PO DAILY 02/25/18 RX: Lisinopril [Zestril] 5 mg PO DAILY 02/25/18 RX: Metoprolol Tartrate [Lopressor] 25 mg PO BID 02/25/18 RX: Pyridoxine HCl (Vitamin B6) 100 mg PO DAILY 02/25/18 [Vitamin B-6] RX: Simvastatin 5 mg PO DAILY 02/25/18 Aspirin [Adult Low Dose Aspirin EC] 81 mg PO 09/08/18 - Allergies Allergies/Adverse Reactions: Allergies Allergy/AdvReac Type Severity Reaction Status Date / Time No Known Allergies Allergy Verified 09/08/18 08:26 Review of Systems ROS Statement: Except As Marked, All Systems Reviewed And Found Negative Cardiovascular: Negative for: Chest Pain Respiratory: Positive for: Cough (productive white phlegm), Shortness of Breath Gastrointestinal: Negative for: Nausea, Vomiting, Diarrhea Physical Exam - Reviewed Nursing Documentation Reviewed: Yes Vital Signs Reviewed: Yes - Physical Exam Appears: Positive for: Uncomfortable Head Exam: Positive for: ATRAUMATIC, NORMOCEPHALIC Skin: Positive for: Normal Color, Warm, Dry Eye Exam: Positive for: Normal appearance, EOMI, PERRL Neck: Positive for: Normal, Painless ROM Cardiovascular/Chest: Positive for: Regular Rate, Rhythm. Negative for: Murmur Respiratory: Positive for: Decreased Breath Sounds (bilaterally), Wheezing (Bilateral wheezing) Gastrointestinal/Abdominal: Positive for: Normal Exam, Soft. Negative for: Tenderness Back: Positive for: Normal Inspection. Negative for: L CVA Tenderness, R CVA Tenderness Extremity: Positive for: Normal ROM. Negative for: Tenderness, Pedal Edema, Deformity Neurologic/Psych: Positive for: Alert, Oriented. Negative for: Motor/Sensory Deficits - Laboratory Results Result Diagrams: 09/08/18 08:40 09/08/18 08:40 Interpretation Of Abn Labs: elevated pronp - ECG ECG: Positive for: Interpreted By Me, Viewed By Me ECG Rhythm: Positive for: Nonspecific Changes (lvh) O2 Sat by Pulse Oximetry: 94 (RA) Pulse Ox Interpretation: Normal - Radiology X-Ray: Interpreted by Me, Viewed By Me X-Ray Interpretation: Cardiomegaly, Other (vascular congestion) - Progress ED Course And Treament: 915: Spoke with Dr. Hernández. Will admit and let Dr. Ceja know who will admit. Stable. Pain free. Breathing better. - Critical Care Total Time (In Min): 30 Documented Critical Care: Time excludes all time spent performint seperately billable procedures Medical Decision Making Medical Decision Making: Time: 08 Plan: -- VBG -- EKG -- BNP -- CMP -- Magnesium -- Phosphorus -- Troponin I -- CBC with Differentials -- PTT -- Prothrombin Time -- CXR Portable -- Duoneb 3mg/0.5mg (3 ml) UD 3 ml INH -- Duoneb 3mg/0.5mg (3 ml) UD 3 ml INH -- Duoneb 3mg/0.5mg (3 ml) UD 3 ml INH -- SOLU-Medrol -- Blood Culture -- Throat Culture -- Fuel Pilot Engineer -- IV Insertion -- Vital Signs Q15 -- Peak Flow Pre/Post Tx -- Peak Flow Pre/Post Tx -- Influenza A B -- Rapid Strep Group A Antigen Time: 914 Plan: -- Aspirin 325 mg PO -- Lasix 40 mg IV -- Nitrostat 0.4 mg SL -- Patient to be admitted Scribe Attestation: Documented by Jose Prieto, acting as a scribe for Marcos Lagunas MD. Provider Scribe Attestation: All medical record entries made by the Scribe were at my direction and personally dictated by me. I have reviewed the chart and agree that the record accurately reflects my personal performance of the history, physical exam, medical decision making, and the department course for this patient. I have also personally directed, reviewed, and agree with the discharge instructions and disposition. Disposition - Clinical Impression Clinical Impression: CHF (congestive heart failure) - Patient ED Disposition Is Patient to be Admitted: Yes Counseled Patient/Family Regarding: Studies Performed, Diagnosis - Disposition Disposition Time: 11:46 Condition: FAIR - Pt Status Changed To: Hospital Disposition Of: Observation - POA Present On Arrival: None
--- NOTE | 2018-09-08 11:04 | CP.PCM.HP ---
<Wendy Banuelos - Last Filed: 09/08/18 11:34> History of Present Illness - History of Present Illness History of Present Illness: 62 y/o Hungarian speaking male w/ pmhx of CHF, HTN, CAD who c/o SOB that began 4 days ago, and worsened this morning. He reports that he is usually compliant w/ home medications, but he missed one day last week while being out of town. He is not compliant with a low sodium diet. He also reports having one day of non- bloody productive cough w/ yellow sputum. He denies chest pain, fever, sore throat, fatigue. He states that he last saw his yarn hauler 5-6 months ago, and is scheduled for a follow-up visit in October. PMHx: Dilated cardiomyopathy w/ CHF (EF: 10-15%), CAD, HTN, HLD, gout, and sciatica Surgical hx: denies Family hx: father had "a big heart" Socialhx: etoh use 5-6 beers on weekends, former smoker, denies recreational drug use. No recent travel hx outside of [place]. Works as a reach truck operator. Allergies: NKDA HomeRx: Asprin 81mg PO QD, Furosemide 40mg PO QD, Simvastatin 5mg PO QD, Metoprolol tartrate 25mg PO BID, Lisinopril 5mg PO QD, B6 vitamin supplements Next of Kin: Spouse, Rita Turner, Code Status: full code Sweeper Cleaner Industrial: Dr. Dorsey Present on Admission - Present on Admission Any Indicators Present on Admission: No History of DVT/PE: No History of Uncontrolled Diabetes: No Urinary Catheter: No Decubitus Ulcer Present: No Review of Systems - Constitutional Constitutional: absent: Excessive Sweating, Fever - EENT Eyes: absent: Blurred Vision Ears: absent: Dizziness Nose/Mouth/Throat: absent: Nasal Congestion, Nasal Discharge, Sore Throat - Cardiovascular Cardiovascular: Dyspnea. absent: Chest Pain, Diaphoresis, Leg Edema, Lightheadedness, Palpitations, Pedal Edema - Respiratory Respiratory: Cough, Wheezing. absent: Hemoptysis - Gastrointestinal Gastrointestinal: absent: Constipation, Diarrhea, Vomiting - Musculoskeletal Musculoskeletal: absent: Muscle Cramps, Numbness, Tingling - Endocrine Endocrine: absent: Fatigue Past Patient History - Infectious Disease Hx of Infectious Diseases: None - Past Medical History & Family History Past Medical History?: Yes - Past Social History Smoking Status: Never Smoked Home Situation {Lives}: With Family - CARDIAC Hx Congestive Heart Failure: Yes Hx Hypercholesterolemia: Yes Hx Hypertension: Yes - PULMONARY Hx Respiratory Disorders: No - NEUROLOGICAL Hx Neurological Disorder: No - HEENT Hx HEENT Problems: No - RENAL Hx Chronic Kidney Disease: No - ENDOCRINE/METABOLIC Hx Endocrine Disorders: No - HEMATOLOGICAL/ONCOLOGICAL Hx Blood Disorders: No - INTEGUMENTARY Hx Dermatological Problems: No - MUSCULOSKELETAL/RHEUMATOLOGICAL Hx Musculoskeletal Disorders: Yes - GASTROINTESTINAL Hx Gastrointestinal Disorders: No - GENITOURINARY/GYNECOLOGICAL Hx Genitourinary Disorders: No - PSYCHIATRIC Hx Psychophysiologic Disorder: No - SURGICAL HISTORY Hx Surgeries: No - ANESTHESIA Hx Anesthesia: Yes Hx Anesthesia Reactions: No Hx Malignant Hyperthermia: No Meds Allergies/Adverse Reactions: Allergies Allergy/AdvReac Type Severity Reaction Status Date / Time No Known Allergies Allergy Verified 09/08/18 08:26 Physical Exam - Constitutional Appears: No Acute Distress - Eye Exam Eye Exam: Normal appearance - ENT Exam ENT Exam: Mucous Membranes Moist - Neck Exam Neck exam: Positive for: Normal Inspection - Respiratory Exam Respiratory Exam: NORMAL BREATHING PATTERN (bilateral diffuse crackles) - Cardiovascular Exam Cardiovascular Exam: REGULAR RHYTHM, +S1, +S2 - GI/Abdominal Exam GI & Abdominal Exam: Distended, Normal Bowel Sounds, Soft. absent: Guarding, Rigid - Extremities Exam Extremities exam: Positive for: full ROM, normal inspection. Negative for: calf tenderness, pedal edema, tenderness - Neurological Exam Neurological exam: Alert, Oriented x3 - Psychiatric Exam Psychiatric exam: Normal Affect - Skin Skin Exam: Dry, Intact, Warm Results - Vital Signs Recent Vital Signs: Last Vital Signs Temp 97.9 F 09/08/18 10:50 Pulse 80 09/08/18 10:50 Resp 18 09/08/18 10:50 BP 153/84 H 09/08/18 10:50 Pulse Ox 94 L 09/08/18 10:50 - Labs Result Diagrams: 09/08/18 08:40 09/08/18 08:40 Labs: Laboratory Results - last 24 hr 09/08/18 09/08/18 09/08/18 08:39 08:39 08:40 WBC RBC Hgb Hct MCV MCH MCHC RDW Plt Count MPV Neut % (Auto) Lymph % (Auto) [place] % (Auto) Eos % (Auto) Baso % (Auto) Neut # (Auto) Lymph # (Auto) [place] # (Auto) Eos # (Auto) Baso # (Auto) PT INR APTT pO2 VBG pH VBG pCO2 VBG HCO3 VBG Total CO2 VBG O2 Sat (Calc) VBG Base Excess VBG Potassium Glucose Lactate FiO2 Sodium 141 Potassium 4.4 Chloride 107 Carbon Dioxide 22 Anion Gap 16 BUN 17 Creatinine 0.9 Est GFR ( Amer) > 60 Est GFR (Non-Af Amer) > 60 Random Glucose 103 Calcium 9.0 Phosphorus 3.5 Magnesium 1.6 Total Bilirubin 1.0 AST 63 H ALT 21 D Alkaline Phosphatase 115 Troponin I 0.0360 NT-Pro-B Natriuret Pep 1260 H Total Protein 8.9 H Albumin 4.3 Globulin 4.6 H Albumin/Globulin Ratio 0.9 L Venous Blood Potassium Influenza Typ A,B (EIA) Negative for flu a/b Grp A Beta Strep Ag Negative 09/08/18 09/08/18 09/08/18 08:40 08:40 08:41 WBC 7.1 RBC 4.47 Hgb 13.2 Hct 39.9 MCV 89.2 MCH 29.5 MCHC 33.1 RDW 14.9 H Plt Count 242 MPV 9.1 Neut % (Auto) 65.6 Lymph % (Auto) 25.4 [place] % (Auto) 7.6 Eos % (Auto) 0.6 Baso % (Auto) 0.8 Neut # (Auto) 4.7 Lymph # (Auto) 1.8 [place] # (Auto) 0.5 Eos # (Auto) 0.0 Baso # (Auto) 0.1 PT 11.2 INR 1.0 APTT 27.6 pO2 49 VBG pH 7.44 H VBG pCO2 38 L VBG HCO3 25.9 VBG Total CO2 27.0 VBG O2 Sat (Calc) 87.2 H VBG Base Excess 1.7 VBG Potassium 4.4 Glucose 104 Lactate 1.4 FiO2 21.0 Sodium 144.0 Potassium Chloride 110.0 H Carbon Dioxide Anion Gap BUN Creatinine Est GFR ( Amer) Est GFR (Non-Af Amer) Random Glucose Calcium Phosphorus Magnesium Total Bilirubin AST ALT Alkaline Phosphatase Troponin I NT-Pro-B Natriuret Pep Total Protein Albumin Globulin Albumin/Globulin Ratio Venous Blood Potassium 4.4 Influenza Typ A,B (EIA) Grp A Beta Strep Ag Assessment & Plan - Assessment and Plan (Free Text) Assessment: 62 y/o male w/ pmhx of CHF, HTN, CAD admitted w/ worsening SOB. Plan: Shortness of breath Possibly secondary to CHF exacerbation vs. respiratory etiology Lasix 40mg IV BID 2L O2 NC PRN Continue home meds: Asprin 81mg PO QD, Simvastatin 5mg PO QD, Metoprolol tartrate 25mg PO BID, Lisinopril 5mg PO QD Follow BMP Check weights daily and strict I/O monitoring Repeat troponins Repeat EKG tomorrow Fluid restriction and salt restriction r/o PE; chest CT w/ CO ordered Cardiology consulted; appreciate recs Cough Probably secondary to CHF CXR 09/08/2018: diffuse bilateral infiltrate, will check chest CT w/o CO Patient is afebrile, wbc wnl Influenza Ag negative and Strep negative Hypertension Chronic Cont home meds Will cont to monitor Diet Heart healthy, low sodium DVT Prophlaxis Lovenox 40mg SC QD - Date & Time Date: 09/08/18 Time: 10:51 <Mc Ceja D - Last Filed: 09/08/18 14:21> Results - Vital Signs Recent Vital Signs: Last Vital Signs Temp 97.6 F 09/08/18 11:53 Pulse 81 09/08/18 11:53 Resp 18 09/08/18 11:53 BP 140/81 09/08/18 11:53 Pulse Ox 96 09/08/18 11:53 - Labs Result Diagrams: 09/08/18 08:40 09/08/18 08:40 Labs: Laboratory Results - last 24 hr 09/08/18 09/08/18 09/08/18 08:39 08:39 08:40 WBC RBC Hgb Hct MCV MCH MCHC RDW Plt Count MPV Neut % (Auto) Lymph % (Auto) [place] % (Auto) Eos % (Auto) Baso % (Auto) Neut # (Auto) Lymph # (Auto) [place] # (Auto) Eos # (Auto) Baso # (Auto) PT INR APTT pO2 VBG pH VBG pCO2 VBG HCO3 VBG Total CO2 VBG O2 Sat (Calc) VBG Base Excess VBG Potassium Glucose Lactate FiO2 Sodium 141 Potassium 4.4 Chloride 107 Carbon Dioxide 22 Anion Gap 16 BUN 17 Creatinine 0.9 Est GFR ( Amer) > 60 Est GFR (Non-Af Amer) > 60 Random Glucose 103 Calcium 9.0 Phosphorus 3.5 Magnesium 1.6 Total Bilirubin 1.0 AST 63 H ALT 21 D Alkaline Phosphatase 115 Troponin I 0.0360 NT-Pro-B Natriuret Pep 1260 H Total Protein 8.9 H Albumin 4.3 Globulin 4.6 H Albumin/Globulin Ratio 0.9 L Venous Blood Potassium Influenza Typ A,B (EIA) Negative for flu a/b Grp A Beta Strep Ag Negative 09/08/18 09/08/18 09/08/18 08:40 08:40 08:41 WBC 7.1 RBC 4.47 Hgb 13.2 Hct 39.9 MCV 89.2 MCH 29.5 MCHC 33.1 RDW 14.9 H Plt Count 242 MPV 9.1 Neut % (Auto) 65.6 Lymph % (Auto) 25.4 [place] % (Auto) 7.6 Eos % (Auto) 0.6 Baso % (Auto) 0.8 Neut # (Auto) 4.7 Lymph # (Auto) 1.8 [place] # (Auto) 0.5 Eos # (Auto) 0.0 Baso # (Auto) 0.1 PT 11.2 INR 1.0 APTT 27.6 pO2 49 VBG pH 7.44 H VBG pCO2 38 L VBG HCO3 25.9 VBG Total CO2 27.0 VBG O2 Sat (Calc) 87.2 H VBG Base Excess 1.7 VBG Potassium 4.4 Glucose 104 Lactate 1.4 FiO2 21.0 Sodium 144.0 Potassium Chloride 110.0 H Carbon Dioxide Anion Gap BUN Creatinine Est GFR ( Amer) Est GFR (Non-Af Amer) Random Glucose Calcium Phosphorus Magnesium Total Bilirubin AST ALT Alkaline Phosphatase Troponin I NT-Pro-B Natriuret Pep Total Protein Albumin Globulin Albumin/Globulin Ratio Venous Blood Potassium 4.4 Influenza Typ A,B (EIA) Grp A Beta Strep Ag Attending/Attestation - Attestation I have personally seen and examined this patient.: Yes I have fully participated in the care of the patient.: Yes I have reviewed all pertinent clinical information: Yes Notes (Text): 09/08/18 14:21 Patient seen and examined with resident. Case discussed and agreed with assessment and plan of management.
--- NOTE | 2018-09-08 11:14 | RAD ---
Date of service: 09/08/2018 HISTORY: Sepsis Patient COMPARISON: 02/25/2018 FINDINGS: LUNGS: Diffuse bilateral infiltrates. PLEURA: No significant pleural effusion identified, no pneumothorax apparent. CARDIOVASCULAR: No aortic atherosclerotic calcification present. Normal cardiac size. No pulmonary vascular congestion. OSSEOUS STRUCTURES: No significant abnormalities. VISUALIZED UPPER ABDOMEN: Normal. OTHER FINDINGS: None. IMPRESSION: Diffuse bilateral infiltrates.
[2018-09-08] MEDS: Enoxaparin 40 mg Syringe SC SCH (12:44)
[2018-09-08] MEDS: Pantoprazole 40 mg EC Tab PO SCH (12:44)
[2018-09-08] MEDS ORDERED: Iodixanol 320 MG/ML 100 ML BOTTLE IV ONE (13:30)
--- NOTE | 2018-09-08 14:15 | CT ---
Date of service: 09/08/2018 PROCEDURE: CT Chest with contrast (Pulmonary Angiogram) HISTORY: acute dyspnea COMPARISON: None available. TECHNIQUE: Axial computed tomography images were obtained of the chest in the pulmonary arterial phase of enhancement. Coronal and sagittal reformatted images were created and reviewed. Intravenous contrast dose: Radiation dose: Total exam DLP = 391.08 mGy-cm. This CT exam was performed using one or more of the following dose reduction techniques: Automated exposure control, adjustment of the mA and/or kV according to patient size, and/or use of iterative reconstruction technique. FINDINGS: PULMONARY ARTERIES: Unremarkable. No pulmonary embolism. AORTA: No acute findings. No thoracic aortic aneurysm. No aortic atherosclerotic calcification or mural plaque present. LUNGS: Patchy bibasilar infiltrates. PLEURAL SPACES: Small bilateral pleural effusions. HEART: Unremarkable. No cardiomegaly. No significant pericardial effusion. LYMPH NODES: No lymphadenopathy. BONES, CHEST WALL: Unremarkable. No fracture or destructive lesion OTHER FINDINGS: Unremarkable. IMPRESSION: Patchy bibasilar infiltrates.Small bilateral pleural effusions. No pulmonary embolism.
[2018-09-09 05:35] LABS: BASO % 0.2 % (0.0-2.0); HEMOGLOBIN 13.1 g/dL (12.0-18.0); LYMPH # 0.9 K/uL (1.0-4.3); LYMPH % 11.5 % (20.0-40.0); MEAN CORPUSCULAR HEMOGLOBIN 29.5 pg (27.0-31.0); MEAN CORPUSCULAR HGB CONC 33.2 g/dL (33.0-37.0); MEAN PLATELET VOLUME 9.5 fl (7.2-11.7); MONO # 0.3 K/uL (0.0-0.8); MONO % 4.3 % (0.0-10.0); NEUT # 6.4 K/uL (1.8-7.0); NRBC % 0.1 % (0.0-0.0); RBC 4.44 Mil/uL (4.40-5.90); RED CELL DISTRIBUTION WIDTH 14.9 % (11.5-14.5); WHITE BLOOD COUNT 7.6 K/uL (4.8-10.8)
[2018-09-09 05:36] LABS: BLOOD UREA NITROGEN 18 mg/dl (9-20); CALCIUM 9.2 mg/dL (8.4-10.2); GFR NON-AFRICAN AMERICAN > 60; HDL CHOLESTEROL 64 MG/DL (30-70)
[2018-09-09 05:48] LABS: LDL CHOLESTEROL 132 mg/dL (0-129)
[2018-09-09 07:49] VITALS: BP 151/83; PULSE 87; RESP 20; TEMP 97.8; O2SAT 99
[2018-09-09] MEDS ORDERED: Pyridoxine 100 mg Tab PO SCH (09:00)
[2018-09-09] MEDS: Enoxaparin 40 mg Syringe SC SCH (09:19)
[2018-09-09] MEDS: Pantoprazole 40 mg EC Tab PO SCH (09:20)
--- NOTE | 2018-09-09 09:26 | CP.PCM.CON ---
History of Present Illness - History of Present Illness History of Present Illness: This 62-year-old -Czech male came into the emergency room complaining of shortness of breath. He admits the fact that he had missed couple of bruises of furosemide which she takes every day. He johnson adfastly refutes ever having experienced any chest pain. He gives history of having had an enlarged heart for which she has been seeing a oncology rn at [facility] on a regular basis. He has had a long history of hypertension but denies diabetes or having suffered prior myocardial infarction. He has been taking an BONNIE inhibitor as well as a beta jeromy and a diabetic on a regular basis. Physical examination shows a middle aged -Czech male who is quite alert awake coherent afebrile and reports significant relief after having received furosemide yesterday. Telemetry shows sinus rhythm at physiological rates. His blood pressure was 150/80 mmHg. His jugular venous pressure was not elevated and there was no edema over his lower extremity. His pedal pulses were well felt. There were no carotid bruits. The apex was in the fifth space the first and second heart sounds were normal there was a brief apical systolic murmur of mitral regurgitation no S3 gallop was audible. Abdomen was soft liver and spleen are not palpable. There were no rales. His electrocardiogram showed sinus rhythm with a pattern of left ventricular hypertrophy which was seen on his cardiogram dating back to 2013. Echocardiograms also dating back to 2013 show severely depressed left ventricular systolic function. For this the patient is being treated by oncology rn in the clinic at [facility]. Troponin levels 3 were negative for any evidence of myocyte injury. Impression congestive cardiomyopathy, hypertension No evidence off acute coronary syndrome. The patient may be allowed to [place] his medications which consisted off an BONNIE inhibitor beta jeromy and a diabetic. he has an appointment to see his oncology rn within next week. Past Patient History - Infectious Disease Hx of Infectious Diseases: None - Past Medical History & Family History Past Medical History?: Yes - Past Social History Smoking Status: Never Smoked Home Situation {Lives}: With Family - CARDIAC Hx Congestive Heart Failure: Yes Hx Hypercholesterolemia: Yes Hx Hypertension: Yes - PULMONARY Hx Respiratory Disorders: No - NEUROLOGICAL Hx Neurological Disorder: No - HEENT Hx HEENT Problems: No - RENAL Hx Chronic Kidney Disease: No - ENDOCRINE/METABOLIC Hx Endocrine Disorders: No - HEMATOLOGICAL/ONCOLOGICAL Hx Blood Disorders: No - INTEGUMENTARY Hx Dermatological Problems: No - MUSCULOSKELETAL/RHEUMATOLOGICAL Hx Musculoskeletal Disorders: Yes - GASTROINTESTINAL Hx Gastrointestinal Disorders: No - GENITOURINARY/GYNECOLOGICAL Hx Genitourinary Disorders: No - PSYCHIATRIC Hx Psychophysiologic Disorder: No - SURGICAL HISTORY Hx Surgeries: No - ANESTHESIA Hx Anesthesia: Yes Hx Anesthesia Reactions: No Hx Malignant Hyperthermia: No Meds Allergies/Adverse Reactions: Allergies Allergy/AdvReac Type Severity Reaction Status Date / Time No Known Allergies Allergy Verified 09/08/18 08:26 - Medications Medications: Current Medications Aspirin (Ecotrin) 81 mg PO DAILY [facility] Docusate Sodium (Colace) 100 mg PO BID PRN PRN Reason: Constipation Enoxaparin Sodium (Lovenox) 40 mg SC DAILY [facility]; Protocol Last Admin: 09/08/18 12:44 Dose: Not Given Furosemide (Lasix) 40 mg PO DAILY [facility] Lisinopril (Zestril) 5 mg PO DAILY [facility] Metoprolol Tartrate (Lopressor) 25 mg PO BID [facility] Last Admin: 09/08/18 16:54 Dose: 25 mg Pantoprazole Sodium (Protonix Ec Tab) 40 mg PO DAILY [facility] Last Admin: 09/08/18 12:44 Dose: Not Given Pyridoxine HCl (Vitamin B6) 100 mg PO DAILY [facility] Results - Vital Signs Recent Vital Signs: Last Vital Signs Temp 97.8 F 09/09/18 07:49 Pulse 87 09/09/18 07:49 Resp 20 09/09/18 07:49 BP 151/83 H 09/09/18 07:49 Pulse Ox 99 09/09/18 07:49 - Labs Result Diagrams: 09/09/18 04:25 09/09/18 04:25 Labs: Laboratory Results - last 24 hr 09/08/18 09/08/18 09/09/18 08:40 16:12 01:37 WBC RBC Hgb Hct MCV MCH MCHC RDW Plt Count MPV Neut % (Auto) Lymph % (Auto) [place] % (Auto) Eos % (Auto) Baso % (Auto) Neut # (Auto) Lymph # (Auto) [place] # (Auto) Eos # (Auto) Baso # (Auto) Sodium Potassium Chloride Carbon Dioxide Anion Gap BUN Creatinine Est GFR ( Amer) Est GFR (Non-Af Amer) Random Glucose Calcium Troponin I 0.0360 0.0170 0.0120 Triglycerides Cholesterol LDL Cholesterol Direct HDL Cholesterol 09/09/18 09/09/18 04:25 04:25 WBC 7.6 RBC 4.44 Hgb 13.1 Hct 39.5 MCV 89.0 MCH 29.5 MCHC 33.2 RDW 14.9 H Plt Count 242 MPV 9.5 Neut % (Auto) 84.0 H Lymph % (Auto) 11.5 L [place] % (Auto) 4.3 Eos % (Auto) 0.0 Baso % (Auto) 0.2 Neut # (Auto) 6.4 Lymph # (Auto) 0.9 L [place] # (Auto) 0.3 Eos # (Auto) 0.0 Baso # (Auto) 0.0 Sodium 140 Potassium 3.9 Chloride 103 Carbon Dioxide 26 Anion Gap 15 BUN 18 Creatinine 1.0 Est GFR ( Amer) > 60 Est GFR (Non-Af Amer) > 60 Random Glucose 153 H Calcium 9.2 Troponin I Triglycerides 66 Cholesterol 199 LDL Cholesterol Direct 132 H HDL Cholesterol 64
--- NOTE | 2018-09-09 10:54 | CARD ---
APPROVED REPORT Date of service: 09/09/2018 EKG Measurement Heart [id number] GA [id number] <Conclusion> Sinus rhythm with occasional premature ventricular complexes Left ventricular hypertrophy T wave abnormality, consider inferolateral ischemia Prolonged QT Abnormal ECG
--- NOTE | 2018-09-09 11:31 | CARD ---
APPROVED REPORT Date of service: 09/08/2018 EKG Measurement Heart [id number] AL [id number] <Conclusion> Sinus rhythm with 1st degree AV block Possible Left atrial enlargement Left ventricular hypertrophy with repolarization abnormality Abnormal ECG
--- NOTE | 2018-09-09 11:51 | CP.PCM.DIS ---
<Wendy Banuelos - Last Filed: 09/09/18 11:54> Provider - Provider Date of Admission: 09/08/18 09:15 Attending physician: Mc Ceja MD Consults: 09/08/18 11:32 Cardiology Consult Routine Comment: Consulting Provider: Osorio Aponte V Consulting Physician: Osorio Aponte V Reason for Consult: acute exacerbation of CHF Time Spent in preparation of Discharge (in minutes): 35 Diagnosis - Discharge Diagnosis (1) Shortness of breath Status: Acute Priority: Low (2) Acute exacerbation of congestive heart failure Status: Acute Priority: Low Hospital Course - Lab Results Lab Results: Micro Results 09/08/18 09:10 Blood Blood Culture - Preliminary NO GROWTH AFTER 24 HOURS 09/08/18 09:10 Blood Blood Culture - Preliminary NO GROWTH AFTER 24 HOURS Most Recent Lab Values WBC 7.6 K/uL (4.8-10.8) 09/09/18 04:25 RBC 4.44 Mil/uL (4.40-5.90) 09/09/18 04:25 Hgb 13.1 g/dL (12.0-18.0) 09/09/18 04:25 Hct 39.5 % (35.0-51.0) 09/09/18 04:25 MCV 89.0 fl (80.0-94.0) 09/09/18 04:25 MCH 29.5 pg (27.0-31.0) 09/09/18 04:25 MCHC 33.2 g/dL (33.0-37.0) 09/09/18 04:25 RDW 14.9 % (11.5-14.5) H 09/09/18 04:25 Plt Count 242 K/uL (130-400) 09/09/18 04:25 MPV 9.5 fl (7.2-11.7) 09/09/18 04:25 Neut % (Auto) 84.0 % (50.0-75.0) H 09/09/18 04:25 Lymph % (Auto) 11.5 % (20.0-40.0) L 09/09/18 04:25 [place] % (Auto) 4.3 % (0.0-10.0) 09/09/18 04:25 Eos % (Auto) 0.0 % (0.0-4.0) 09/09/18 04:25 Baso % (Auto) 0.2 % (0.0-2.0) 09/09/18 04:25 Neut # (Auto) 6.4 K/uL (1.8-7.0) 09/09/18 04:25 Lymph # (Auto) 0.9 K/uL (1.0-4.3) L 09/09/18 04:25 [place] # (Auto) 0.3 K/uL (0.0-0.8) 09/09/18 04:25 Eos # (Auto) 0.0 K/uL (0.0-0.7) 09/09/18 04:25 Baso # (Auto) 0.0 K/uL (0.0-0.2) 09/09/18 04:25 PT 11.2 Seconds (9.8-13.1) 09/08/18 08:40 INR 1.0 09/08/18 08:40 APTT 27.6 Seconds (25.6-37.1) 09/08/18 08:40 pO2 49 mm/Hg (30-55) 09/08/18 08:41 VBG pH 7.44 (7.32-7.43) H 09/08/18 08:41 VBG pCO2 38 mmHg (40-60) L 09/08/18 08:41 VBG HCO3 25.9 mmol/L 09/08/18 08:41 VBG Total CO2 27.0 mmol/L (22-28) 09/08/18 08:41 VBG O2 Sat (Calc) 87.2 % (40-65) H 09/08/18 08:41 VBG Base Excess 1.7 mmol/L (0.0-2.0) 09/08/18 08:41 VBG Potassium 4.4 mmol/L (3.6-5.2) 09/08/18 08:41 Sodium 144.0 mmol/L (132-148) 09/08/18 08:41 Chloride 110.0 mmol/L (98-107) H 09/08/18 08:41 Glucose 104 mg/dL (75-110) 09/08/18 08:41 Lactate 1.4 mmol/L (0.7-2.1) 09/08/18 08:41 FiO2 21.0 % 09/08/18 08:41 Sodium 140 mmol/l (132-148) 09/09/18 04:25 Potassium 3.9 MMOL/L (3.6-5.0) 09/09/18 04:25 Chloride 103 mmol/L (98-107) 09/09/18 04:25 Carbon Dioxide 26 mmol/L (22-30) 09/09/18 04:25 Anion Gap 15 (10-20) 09/09/18 04:25 BUN 18 mg/dl (9-20) 09/09/18 04:25 Creatinine 1.0 mg/dl (0.8-1.5) 09/09/18 04:25 Est GFR ( Amer) > 60 09/09/18 04:25 Est GFR (Non-Af Amer) > 60 09/09/18 04:25 Random Glucose 153 mg/dL (75-110) H 09/09/18 04:25 Calcium 9.2 mg/dL (8.4-10.2) 09/09/18 04:25 Phosphorus 3.5 mg/dl (2.5-4.5) 09/08/18 08:40 Magnesium 1.6 MG/DL (1.6-2.3) 09/08/18 08:40 Total Bilirubin 1.0 mg/dl (0.2-1.3) 09/08/18 08:40 AST 63 U/L (17-59) H 09/08/18 08:40 ALT 21 U/L (21-72) D 09/08/18 08:40 Alkaline Phosphatase 115 U/L (38-126) 09/08/18 08:40 Troponin I 0.0120 ng/mL (0.00-0.120) 09/09/18 01:37 NT-Pro-B Natriuret Pep 1260 pg/ml (0-900) H 09/08/18 08:40 Total Protein 8.9 G/DL (6.3-8.2) H 09/08/18 08:40 Albumin 4.3 g/dL (3.5-5.0) 09/08/18 08:40 Globulin 4.6 gm/dL (2.2-3.9) H 09/08/18 08:40 Albumin/Globulin Ratio 0.9 (1.0-2.1) L 09/08/18 08:40 Triglycerides 66 mg/DL (0-149) 09/09/18 04:25 Cholesterol 199 mg/dL (0-199) 09/09/18 04:25 LDL Cholesterol Direct 132 mg/dL (0-129) H 09/09/18 04:25 HDL Cholesterol 64 MG/DL (30-70) 09/09/18 04:25 Venous Blood Potassium 4.4 mmol/L (3.6-5.2) 09/08/18 08:41 Influenza Typ A,B (EIA) Negative for flu a/b (NEGATIVE) 09/08/18 08:39 Grp A Beta Strep Ag Negative (NEGATIVE) 09/08/18 08:39 - Hospital Course Hospital Course: 62 y/o male w/ pmhx of CHF, HTN, CAD who was admitted for congestive heart failure exacerbation after missing a few days of HTN medications. He was treated w/ Lasix 40 mg IV once and, Lasix 40mg PO once. Patient was seen by dedenter, Dr. Aponte, who cleared patient for discharge with instructions to continue taking his home medications and follow up w/ his dedenter within a week. Patient's symptoms resolved and was stable for discharge to home w/ no new medications or changes to current medications. - Date & Time of H&P Date of H&P: 09/09/18 Time of H&P: 10:50 Discharge Exam - Head Exam Head Exam: ATRAUMATIC, NORMOCEPHALIC - ENT Exam ENT Exam: Mucous Membranes Moist - Respiratory Exam Respiratory Exam: Clear to PA & Lateral, NORMAL BREATHING PATTERN - Cardiovascular Exam Cardiovascular Exam: REGULAR RHYTHM, +S1, +S2 - GI/Abdominal Exam GI & Abdominal Exam: Normal Bowel Sounds, Soft, Unremarkable. absent: Tenderness - Extremities Exam Additional comments: no leg edema - Neurological Exam Neurological exam: Alert, Oriented x3 - Psychiatric Exam Psychiatric exam: Normal Affect - Skin Skin Exam: Dry, Intact, Warm Discharge Plan - Follow Up Plan Condition: FAIR Disposition: HOME/ ROUTINE Patient education suggested?: Yes Instructions: Heart Failure, Adult (DC) Additional Instructions: pt has scheduled follow up appt with [facility] dedenter on 10/24/18 at 1:00pm Referrals: [facility] [Outside] <Mc Ceja - Last Filed: 09/09/18 13:30> Provider - Provider Date of Admission: 09/08/18 09:15 Attending physician: Mc Ceja MD Consults: 09/08/18 11:32 Cardiology Consult Routine Comment: Consulting Provider: Osorio Aponte V Consulting Physician: Osorio Aponte V Reason for Consult: acute exacerbation of CHF Hospital Course - Lab Results Lab Results: Micro Results 09/08/18 09:10 Blood Blood Culture - Preliminary NO GROWTH AFTER 24 HOURS 09/08/18 09:10 Blood Blood Culture - Preliminary NO GROWTH AFTER 24 HOURS Most Recent Lab Values WBC 7.6 K/uL (4.8-10.8) 09/09/18 04:25 RBC 4.44 Mil/uL (4.40-5.90) 09/09/18 04:25 Hgb 13.1 g/dL (12.0-18.0) 09/09/18 04:25 Hct 39.5 % (35.0-51.0) 09/09/18 04:25 MCV 89.0 fl (80.0-94.0) 09/09/18 04:25 MCH 29.5 pg (27.0-31.0) 09/09/18 04:25 MCHC 33.2 g/dL (33.0-37.0) 09/09/18 04:25 RDW 14.9 % (11.5-14.5) H 09/09/18 04:25 Plt Count 242 K/uL (130-400) 09/09/18 04:25 MPV 9.5 fl (7.2-11.7) 09/09/18 04:25 Neut % (Auto) 84.0 % (50.0-75.0) H 09/09/18 04:25 Lymph % (Auto) 11.5 % (20.0-40.0) L 09/09/18 04:25 [place] % (Auto) 4.3 % (0.0-10.0) 09/09/18 04:25 Eos % (Auto) 0.0 % (0.0-4.0) 09/09/18 04:25 Baso % (Auto) 0.2 % (0.0-2.0) 09/09/18 04:25 Neut # (Auto) 6.4 K/uL (1.8-7.0) 09/09/18 04:25 Lymph # (Auto) 0.9 K/uL (1.0-4.3) L 09/09/18 04:25 [place] # (Auto) 0.3 K/uL (0.0-0.8) 09/09/18 04:25 Eos # (Auto) 0.0 K/uL (0.0-0.7) 09/09/18 04:25 Baso # (Auto) 0.0 K/uL (0.0-0.2) 09/09/18 04:25 PT 11.2 Seconds (9.8-13.1) 09/08/18 08:40 INR 1.0 09/08/18 08:40 APTT 27.6 Seconds (25.6-37.1) 09/08/18 08:40 pO2 49 mm/Hg (30-55) 09/08/18 08:41 VBG pH 7.44 (7.32-7.43) H 09/08/18 08:41 VBG pCO2 38 mmHg (40-60) L 09/08/18 08:41 VBG HCO3 25.9 mmol/L 09/08/18 08:41 VBG Total CO2 27.0 mmol/L (22-28) 09/08/18 08:41 VBG O2 Sat (Calc) 87.2 % (40-65) H 09/08/18 08:41 VBG Base Excess 1.7 mmol/L (0.0-2.0) 09/08/18 08:41 VBG Potassium 4.4 mmol/L (3.6-5.2) 09/08/18 08:41 Sodium 144.0 mmol/L (132-148) 09/08/18 08:41 Chloride 110.0 mmol/L (98-107) H 09/08/18 08:41 Glucose 104 mg/dL (75-110) 09/08/18 08:41 Lactate 1.4 mmol/L (0.7-2.1) 09/08/18 08:41 FiO2 21.0 % 09/08/18 08:41 Sodium 140 mmol/l (132-148) 09/09/18 04:25 Potassium 3.9 MMOL/L (3.6-5.0) 09/09/18 04:25 Chloride 103 mmol/L (98-107) 09/09/18 04:25 Carbon Dioxide 26 mmol/L (22-30) 09/09/18 04:25 Anion Gap 15 (10-20) 09/09/18 04:25 BUN 18 mg/dl (9-20) 09/09/18 04:25 Creatinine 1.0 mg/dl (0.8-1.5) 09/09/18 04:25 Est GFR ( Amer) > 60 09/09/18 04:25 Est GFR (Non-Af Amer) > 60 09/09/18 04:25 Random Glucose 153 mg/dL (75-110) H 09/09/18 04:25 Calcium 9.2 mg/dL (8.4-10.2) 09/09/18 04:25 Phosphorus 3.5 mg/dl (2.5-4.5) 09/08/18 08:40 Magnesium 1.6 MG/DL (1.6-2.3) 09/08/18 08:40 Total Bilirubin 1.0 mg/dl (0.2-1.3) 09/08/18 08:40 AST 63 U/L (17-59) H 09/08/18 08:40 ALT 21 U/L (21-72) D 09/08/18 08:40 Alkaline Phosphatase 115 U/L (38-126) 09/08/18 08:40 Troponin I 0.0120 ng/mL (0.00-0.120) 09/09/18 01:37 NT-Pro-B Natriuret Pep 1260 pg/ml (0-900) H 09/08/18 08:40 Total Protein 8.9 G/DL (6.3-8.2) H 09/08/18 08:40 Albumin 4.3 g/dL (3.5-5.0) 09/08/18 08:40 Globulin 4.6 gm/dL (2.2-3.9) H 09/08/18 08:40 Albumin/Globulin Ratio 0.9 (1.0-2.1) L 09/08/18 08:40 Triglycerides 66 mg/DL (0-149) 09/09/18 04:25 Cholesterol 199 mg/dL (0-199) 09/09/18 04:25 LDL Cholesterol Direct 132 mg/dL (0-129) H 09/09/18 04:25 HDL Cholesterol 64 MG/DL (30-70) 09/09/18 04:25 Venous Blood Potassium 4.4 mmol/L (3.6-5.2) 09/08/18 08:41 Influenza Typ A,B (EIA) Negative for flu a/b (NEGATIVE) 09/08/18 08:39 Grp A Beta Strep Ag Negative (NEGATIVE) 09/08/18 08:39 Attending/Attestation - Attestation I have personally seen and examined this patient.: Yes I have fully participated in the care of the patient.: Yes I have reviewed all pertinent clinical information, including history, physical exam and plan: Yes Notes (Text): 09/09/18 13:29 Patient seen and examined with resident. Case discussed and agreed with assessment. Patient discharged in stable condition.
--- NOTE | 2018-09-10 10:49 | PQF ---
PROVIDER RESPONSE TEXT: Pt had acute on chronic, left ventricular systolic CHF REVIEWER QUERY TEXT: Heart Failure Acuity and Type Congestive Heart Failure is documented in the Medical Record. Please document the type and acuity (in cludes probable or suspected) Such as: Type: -- Combined systolic and diastolic (heart failure with reduced ejection fraction and diastolic) dysfu nction -- Diastolic (HFpEF) -- Systolic (HFrEF) -- Left heart failure -- Right heart failure -- Right heart failure due to left heart failure -- High output failure -- End stage heart failure -- Other, please specify Acuity: -- Acute -- Chronic -- Acute on chronic -- Other, please specify The patient's Clinical Indicators include: Admitted with SOB, cough, cold and congestion. Temp 97.4, WBC 7.1 Pro BNP 1260 CXR: Diffuse bilateral infiltrates Rx: IV Lasix, Zestril, Lopressor Query created by: Janette Myrick on 09/09/2018 1:43 PM Electronically signed by: Osorio Aponte MD 09/10/2018 10:46 AM
== END 2018-09-09 12:03 | disposition home or self-care (01) | DRG 127 ==
LOC: H.ER 08:06 → H.ERHOLD 09:15 → H.TEL 10:35
DX: I11.0 Hypertensive heart disease with heart failure (principal); I42.0 Dilated cardiomyopathy; I50.23 Acute on chronic systolic (congestive) heart failure; E11.9 Type 2 diabetes mellitus without complications; E78.00 Pure hypercholesterolemia, unspecified; E78.5 Hyperlipidemia, unspecified; I25.10 Atherosclerotic heart disease of native coronary artery without angina pectoris; I34.0 Nonrheumatic mitral (valve) insufficiency; Z87.891 Personal history of nicotine dependence; M10.9 Gout, unspecified; M54.30 Sciatica, unspecified side

== ENCOUNTER 2018-10-25 15:52 | Emergency (ER) | payer MEDICAID ==
[2018-10-25 15:52] VITALS: BMI 29.2
[2018-10-25 16:13] VITALS: O2SAT 99
[2018-10-25] MEDS ORDERED: Albuterol-Ipratrop 3 mg / 0.5 (3 ml) UD INH STA (16:22)
[2018-10-25] MEDS ORDERED: Albuterol-Ipratrop 3 mg / 0.5 (3 ml) UD ONE (16:32)
--- NOTE | 2018-10-25 16:35 | ED PDOC ---
HPI: Influenza Time Seen by Provider: 10/25/18 16:15 Chief Complaint: Cough, Cold, Congestion Chief Complaint (Provider): Cough, Cold, Congestion History Per: Patient Exam Limitations: no limitations Onset/Duration Of Symptoms: Days (1x week) Symptoms include: bodyaches, sore throat, cough, nasal congestion. denies: fever Additional complaint(s):: 62 year old male with no pertinent past medical history presents to the ED for an evaluation of a cough, nasal congestion, bodyaches, and a sore throat ongoing for 1x week. Patient denies having a fever at home, and denies smoking. PMD: None provided. Past Medical History Reviewed: Historical Data, Nursing Documentation, Vital Signs Vital Signs: Last Vital Signs Temp 98.2 F 10/25/18 16:11 Pulse 71 10/25/18 16:11 Resp 19 10/25/18 16:11 BP 153/99 H 10/25/18 16:11 Pulse Ox 99 10/25/18 16:11 ELEN Report Viewed: Yes - Medical History PMH: CAD, CHF, HTN, Hypercholesterolemia Denies: HIV, Chronic Kidney Disease - Family History Family History: States: No Known Family Hx - Social History Current smoker - smoking cessation education provided: No Ex-Smoker (has not smoked in the last 12 months): Yes Alcohol: None Drugs: Denies - Home Medications Home Medications: Ambulatory Orders Medication Instructions Recorded Furosemide [Lasix] 40 mg PO DAILY 02/25/18 Lisinopril [Zestril] 5 mg PO DAILY 02/25/18 Metoprolol Tartrate [Lopressor] 25 mg PO BID 02/25/18 Pyridoxine HCl (Vitamin B6) 100 mg PO DAILY 02/25/18 [Vitamin B-6] Simvastatin 5 mg PO DAILY 02/25/18 Aspirin [Adult Low Dose Aspirin EC] 81 mg PO 09/08/18 Albuterol 0.083% [Albuterol 0.083% 2.5 mg IH Q8 PRN #100 neb 10/25/18 Inhal Chela (2.5 mg/3 ml) UD] Levofloxacin [Levaquin] 750 mg PO DAILY #5 tablet 10/25/18 Mask, Face [Nebulizer Aerosol Mask 1 dev XX PRN PRN #1 dev 10/25/18 Adult] Nebulizer [Aeroeclipse II] 1 each MC Q8 PRN #1 each 10/25/18 - Allergies Allergies/Adverse Reactions: Allergies Allergy/AdvReac Type Severity Reaction Status Date / Time No Known Allergies Allergy Verified 10/25/18 16:13 Review of Systems ROS Statement: Except As Marked, All Systems Reviewed And Found Negative Constitutional: Positive for: Other (bodyaches). Negative for: Fever ENT: Positive for: Nose Congestion, Throat Pain Respiratory: Positive for: Cough Physical Exam - Reviewed Nursing Documentation Reviewed: Yes Vital Signs Reviewed: Yes - Physical Exam Appears: Positive for: Well, Non-toxic, No Acute Distress Head Exam: Positive for: ATRAUMATIC, NORMOCEPHALIC Skin: Positive for: Normal Color, Warm, Dry Eye Exam: Positive for: Normal appearance ENT: Positive for: Normal ENT Inspection, Pharynx Is (clear). Negative for: Pharyngeal Erythema Cardiovascular/Chest: Positive for: Regular Rate, Rhythm Respiratory: Positive for: Rhonchi (mild rhonchi noted bilaterally) Neurologic/Psych: Positive for: Alert, Oriented (3x) Medical Decision Making Medical Decision Makin:15 Initial impression: 62 year old male with a cough, nasal congestion, bodyaches, and a sore throat. Initial plan: * XRay chest 2 views * duoneb 3 ml INH * peak flow pre post * influenza AB * reevaluation Scribe Attestation: Documented byErnestine Huber, acting as a scribe for Linda Perez PA-C. Provider Scribe Attestation: All medical record entries made by the Scribe were at my direction and personally dictated by me. I have reviewed the chart and agree that the record accurately reflects my personal performance of the history, physical exam, medical decision making, and the department course for this patient. I have also personally directed, reviewed, and agree with the discharge instructions and disposition. - ECG O2 Sat by Pulse Oximetry: 99 (RA) Pulse Ox Interpretation: Normal Disposition - Clinical Impression Clinical Impression: Pneumonia - Patient ED Disposition Is Patient to be Admitted: No - Disposition Disposition: Routine/Home Disposition Time: 17:27 Condition: FAIR Prescriptions: Albuterol 0.083% [Albuterol 0.083% Inhal Chela (2.5 mg/3 ml) UD] 2.5 mg IH Q8 PRN #100 neb PRN Reason: Cough And Congestion Levofloxacin [Levaquin] 750 mg PO DAILY #5 tablet Mask, Face [Nebulizer Aerosol Mask Adult] 1 dev XX PRN PRN #1 dev PRN Reason: Cough Nebulizer [Aeroeclipse II] 1 each MC Q8 PRN #1 each PRN Reason: Cough Instructions: Pneumonia in Adults
[2018-10-25 17:39] VITALS: BP 140/98; PULSE 82; RESP 18; TEMP 98.4
--- NOTE | 2018-10-25 18:49 | RAD ---
Date of service: 10/25/2018 HISTORY: cough COMPARISON: Portable chest 09/08/2018. TECHNIQUE: Chest PA and lateral FINDINGS: LUNGS: Question patchy infiltrate right infrahilar space. Remaining interspaces are normal. PLEURA: No significant pleural effusion identified. No pneumothorax apparent. CARDIOVASCULAR: Calcific atherosclerotic changes are seen related to the thoracic aorta. Cardiomegaly appears stable. Marked improvement in pulmonary vascular congestion with potential minimal residual or recurrence. OSSEOUS STRUCTURES: No significant abnormalities. VISUALIZED UPPER ABDOMEN: Normal. OTHER FINDINGS: None. IMPRESSION: Limited medial right basilar patchy airspace disease in question, seen only in the frontal projection. Minimal residual pulmonary vascular congestion versus recurrence. Stable cardiomegaly.
== END 2018-10-25 17:38 | disposition home or self-care (01) ==
LOC: H.ER 15:52
DX: J18.9 Pneumonia, unspecified organism (principal); E78.00 Pure hypercholesterolemia, unspecified; I11.0 Hypertensive heart disease with heart failure; Z79.899 Other long term (current) drug therapy

== ENCOUNTER 2019-02-10 13:23 | Emergency (ER) | payer MEDICAID ==
[2019-02-10 13:23] VITALS: BMI 29.2
[2019-02-10 14:00] VITALS: BP 149/89; PULSE 79; RESP 18; TEMP 98.4; O2SAT 97
--- NOTE | 2019-02-10 14:43 | ED PDOC ---
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 Patient reports pain has been present x 4 days, has used back brace and icyhot with no relief. He denies any weakness, numbness or paresthesia in his lower extremities. Also denies any bowel/bladder incontinence. Patient offers no additional complaints. Speech Language Therapist: Dr. Steven Past Medical History Reviewed: Historical Data, Nursing Documentation, Vital Signs Vital Signs: Last Vital Signs Temp 98.4 F 02/10/19 13:57 Pulse 79 02/10/19 13:57 Resp 18 02/10/19 13:57 BP 149/89 02/10/19 13:57 Pulse Ox 97 02/10/19 13:57 Primary Care Provider: Non [facility] Provider, - Medical History PMH: CAD, CHF, HTN, Hypercholesterolemia Denies: HIV, Chronic Kidney Disease - Surgical History Surgical History: No Surg Hx - Family History Family History: States: Unknown Family Hx - Home Medications Home Medications: Ambulatory Orders Medication Instructions Recorded Furosemide [Lasix] 40 mg PO DAILY 02/25/18 Lisinopril [Zestril] 5 mg PO DAILY 02/25/18 Metoprolol Tartrate [Lopressor] 25 mg PO BID 02/25/18 Pyridoxine HCl (Vitamin B6) 100 mg PO DAILY 02/25/18 [Vitamin B-6] Simvastatin 5 mg PO DAILY 02/25/18 Aspirin [Adult Low Dose Aspirin EC] 81 mg PO 09/08/18 Albuterol 0.083% [Albuterol 0.083% 2.5 mg IH Q8 PRN #100 neb 10/25/18 Inhal Chela (2.5 mg/3 ml) UD] Levofloxacin [Levaquin] 750 mg PO DAILY #5 tablet 10/25/18 Mask, Face [Nebulizer Aerosol Mask 1 dev XX PRN PRN #1 dev 10/25/18 Adult] Nebulizer [Aeroeclipse II] 1 each MC Q8 PRN #1 each 10/25/18 Cyclobenzaprine [Cyclobenzaprine 10 mg PO Q8H PRN #12 tab 02/10/19 HCl] - Allergies Allergies/Adverse Reactions: Allergies Allergy/AdvReac Type Severity Reaction Status Date / Time No Known Allergies Allergy Verified 02/10/19 14:00 Review of Systems Genitourinary Male: Negative for: Incontinence Musculoskeletal: Positive for: Back Pain Neurological: Negative for: Weakness, Numbness Physical Exam - Reviewed Nursing Documentation Reviewed: Yes Vital Signs Reviewed: Yes - Physical Exam Appears: Positive for: No Acute Distress Head Exam: Positive for: NORMAL INSPECTION Skin: Positive for: Normal Color Eye Exam: Positive for: Normal appearance Neck: Positive for: Supple Cardiovascular/Chest: Positive for: Regular Rate, Rhythm. Negative for: Tachycardia Respiratory: Positive for: Normal Breath Sounds. Negative for: Respiratory Distress Back: Positive for: Other (diffuse paralumbar tenderness, more on left SI joint ; negative straight leg raise bilaterally). Negative for: L CVA Tenderness, R CVA Tenderness, Vertebral Tenderness Extremity: Positive for: Normal ROM. Negative for: Tenderness, Deformity Neurological/Psych: Positive for: Awake, Alert, Normal Tone, Symmetric/Intact Strength (5/5 strength bilateral lower extremities) - ECG O2 Sat by Pulse Oximetry: 97 (RA) Pulse Ox Interpretation: Normal Medical Decision Making Medical Decision Making: Impression: Lower back pain, likely musculoskeletal Plan: -- Tylenol 650mg PO -- Flexeril 10mg PO Pt feels better on re-evaluation at 1540. Scribe Attestation: Documented by Marissa Lu, acting as a scribe for MARLY Ellis Provider Scribe Attestation: All medical record entries made by the Scribe were at my direction and personally dictated by me. I have reviewed the chart and agree that the record accurately reflects my personal performance of the history, physical exam, medical decision making, and the department course for this patient. I have also personally directed, reviewed, and agree with the discharge instructions and disposition. Disposition - Clinical Impression Clinical Impression: Sciatica - Patient ED Disposition Is Patient to be Admitted: No Counseled Patient/Family Regarding: Diagnosis, Need For Followup, Rx Given - Disposition Referrals: [facility] [Outside] Disposition: Routine/Home Disposition Time: 15:44 Condition: GOOD Prescriptions: Cyclobenzaprine [Cyclobenzaprine HCl] 10 mg PO Q8H PRN #12 tab PRN Reason: Muscle Spasm Instructions: Sciatica (DC), Sciatica Exercises Forms: [facility] (Maldivian) Print Language: ITALIAN
== END 2019-02-10 16:38 | disposition home or self-care (01) ==
LOC: H.ER 13:23
DX: M54.30 Sciatica, unspecified side (principal); I10 Essential (primary) hypertension